=== PATIENT | female | born 1985 | race Caucasian/White ===

== ENCOUNTER 2017-03-27 06:22 | Day surgery (SDC) | payer BC, MEDICAID ==
[2017-03-26 13:59] VITALS: BP 130/81
[~2017-03-27] VITALS: Ht 162.6 cm; Wt 82.8 kg
[~2017-03-27 06:22] MED LIST: ACET325T14 PO; TOPI50TA35 PO
[2017-03-27] MEDS ORDERED: LACTATED RINGERS 1,000 ML IV SCH (06:57)
[2017-03-27 06:59] VITALS: BP 130/81
[2017-03-27] MEDS ORDERED: FLUORESCEIN OPHTHALMIC 1 MG STRIP ONE (07:00)
[2017-03-27] MEDS ORDERED: LIDOCAINE 1%, 2ML SQ PRN (07:00)
[2017-03-27] MEDS ORDERED: SODIUM CHLORIDE 0.9% 0 ML ONE (07:00)
[2017-03-27] MEDS ORDERED: OXYMETAZOLINE NASAL SPRAY 0.05%, 15ML ONE (07:00)
[2017-03-27] MEDS ORDERED: EPINEPHRINE TOPICAL SOLN 1 MG/ML, 30ML ONE (07:00)
[2017-03-27] MEDS ORDERED: LIDOCAINE/PF 1%, 30ML ONE (07:01)
[2017-03-27] MEDS ORDERED: BACITRACIN 50,000 UNIT ONE (07:01)
[2017-03-27] MEDS ORDERED: EPINEPHRINE 1 MG/ML, 1ML ONE (07:01)
[2017-03-27] MEDS ORDERED: BACITRACIN ZINC OINT 500U/GM, 0.9 GM ONE (07:01)
[2017-03-27 07:07] LABS: HCG UR OBC PASS
[2017-03-27] MEDS ORDERED: BACITRACIN OINT 500U/GM, 15 GM ONE (07:08)
[2017-03-27] MEDS ORDERED: MIDAZOLAM 1 MG/ML, 2ML ONE (08:22)
[2017-03-27] MEDS ORDERED: FENTANYL PF 100 MCG/2ML ONE ×3 (08:22→11:01)
[2017-03-27] MEDS ORDERED: CEFAZOLIN 1,000 MG ONE (08:38)
[2017-03-27] MEDS ORDERED: PROPOFOL 10 MG/ML, 20ML ONE (08:38)
[2017-03-27] MEDS ORDERED: GLYCOPYRROLATE 0.2MG/1ML ONE (08:38)
[2017-03-27] MEDS ORDERED: DEXAMETHASONE 4 MG/ML, 1ML ONE (08:38)
[2017-03-27] MEDS ORDERED: ROCURONIUM 10 MG/ML ONE (08:38)
[2017-03-27] MEDS ORDERED: ONDANSETRON 2MG/ML, 2ML ONE ×2 (08:38→11:01)
[2017-03-27] MEDS ORDERED: NEOSTIGMINE 1 MG/ML, 10ML ONE (08:38)
[2017-03-27] MEDS ORDERED: FENTANYL PF 100 MCG/2ML IV PRN (09:00)
[2017-03-27] MEDS ORDERED: HYDROmorphone 1 MG/ML, 1ML IV PRN (09:00)
[2017-03-27] MEDS ORDERED: PROMETHAZINE 25 MG/ML, 1ML IV PRN (09:00)
[2017-03-27] MEDS ORDERED: OXYcodone 5 MG/5 ML ORAL.SOL UDC PO PRN (09:00)
[2017-03-27] MEDS ORDERED: ONDANSETRON 2MG/ML, 2ML IVPush PRN (09:00)
[2017-03-27] MEDS ORDERED: ACETAMINOPHEN 325 MG TABLET PO PRN (09:00)
[2017-03-27] MEDS ORDERED: ACETAMINOPHEN 650 MG/20.3 ML UDC ONE (11:11)
[2017-03-27] MEDS ORDERED: OXYcodone 5 MG/5 ML ORAL.SOL UDC ONE (11:12)
== END 2017-03-27 14:00 ==
LOC: OUT 06:22
PROVIDERS: ATTEND Otolaryngology
DX: J34.2 Deviated nasal septum (principal); J32.9 Chronic sinusitis, unspecified; J34.89 Other specified disorders of nose and nasal sinuses; J34.3 Hypertrophy of nasal turbinates
CPT/HCPCS: 30520; 31240; 31255; 31256; 61782; 81025; 88304; J0171; J0690; J1100; J2250; J2405; J2704; J2710; J3010; J3490; J7120